=== PATIENT | male | born 1990 | race American Indian/Alaskan Native ===

== ENCOUNTER 2018-12-01 02:50 | Emergency (ER) | payer SELFPAY ==
[2018-12-01] MEDS ORDERED: Lidocaine 1% Inj (20ml) IJ STA (03:54)
[2018-12-01] MEDS ORDERED: Bacitracin 500 Units/gm Oint Foilpak UD TOP STA (04:20)
--- NOTE | 2018-12-01 06:22 | ED PDOC ---
Arrival/HPI - General Chief Complaint: Abnormal Skin Integrity Time Seen by Provider: 12/01/18 06:15 Historian: Patient - History of Present Illness Narrative History of Present Illness (Text): 12/01/18 06:16 28 y/o M w/ no PMH presenting to the Emergency Room with complaint of finger laceration. Patient states he was changing his tire when he sustained a laceration on his left index finger. He denies any debris entering the skin. He denies head injury, falls, numbness to the hand or changes in temperture. He is unsure of his last tetanus shot. Time/Duration: Prior to Arrival Symptom Onset: Sudden Symptom Course: Unchanged Activities at Onset: Rest Context: Home Past Medical History - Provider Review Nursing Documentation Reviewed: Yes - Travel History Have you recently traveled outside [place] w/in the past 3 mons?: No Family/Social History - Physician Review Nursing Documentation Reviewed: Yes Family/Social History: Unknown Family HX Allergies/Home Meds Allergies/Adverse Reactions: Allergies No Known Allergies Allergy (Verified 12/01/18 06:43) Review of Systems - Physician Review All systems were reviewed & negative as marked: Yes - Review of Systems Skin: Laceration (L index finger) Physical Exam Vital Signs Reviewed: Yes Temperature: Afebrile Blood Pressure: Normal Pulse: Regular Respiratory Rate: Normal Appearance: Positive for: Well-Appearing, Non-Toxic, Comfortable Mental Status: Positive for: Alert and Oriented X 3 - Systems Exam Head: Present: Atraumatic, Normocephalic Pupils: Present: PERRL Extroacular Muscles: Present: EOMI Mouth: Present: Moist Mucous Membranes Respiratory/Chest: Present: Clear to Auscultation, Good Air Exchange. No: Respiratory Distress Cardiovascular: Present: Regular Rate and Rhythm, Normal S1, S2 Upper Extremity: Present: Normal Inspection, NORMAL PULSES, Neurovascularly Intact, Capillary Refill < 2s. No: Cyanosis, Edema Skin: Present: Warm, Dry, Laceration (Left index finger complex deep laceration w/ exposed subcutaneous tissue) Psychiatric: Present: Alert, Oriented x 3, Normal [facility] Medical Decision Making ED Course and Treatment: 12/01/18 06:21 Impression 28M w/ finger laceration Plan -Tetanus booster shot --Suture repair --Reassess & disposition Progress Notes 12/01/18 06:27 Laceration repair completed with no difficulties. Patient advised to follow up with PCP or return back to ED for wound reevaluation and suture removal in 3-5 days. He demonstrates understanding and will follow up. He is stable for discharge. PROCEDURE: LACERATION REPAIR Performed by the emergency provider Location: Left index finger Length: 4 cm Description: Simple deep linear laceration with clean wound edges ,no foreign bodies visualized Distal CMS: Normal. No deficits. Neurovascularly intact. Anesthesia: Lidocaine 1% Preparation: The wound was cleaned with NS and Bet[place]. The area was prepped and draped in the usual sterile fashion. Exploration: The wound was explored and no foreign bodies were found. Procedure: The wound was closed with 3.0 nylon & 3.0 Vicyrl. There was good approximation. In total, 8 were used. Post-Procedure: Good closure and hemostasis. The patient tolerated the procedure well and there were no complications. CSM remains intact. Post procedure dressing applied. Disposition/Present on Arrival - Present on Arrival Any Indicators Present on Arrival: No History of DVT/PE: No History of Uncontrolled Diabetes: No Urinary Catheter: No History of Decub. Ulcer: No - Disposition Have Diagnosis and Disposition been Completed?: Yes Diagnosis: Finger laceration Disposition: HOME/ ROUTINE Disposition Time: 05:00 Patient Plan: Discharge Condition: IMPROVED Discharge Instructions (ExitCare): Wound Care (DC), Common Finger Injuries (DC) Forms: [address] ([place])
== END 2018-12-01 10:34 | disposition home or self-care (01) ==
LOC: ED 02:50
DX: S61.211A Laceration without foreign body of left index finger without damage to nail, initial encounter (principal); X58.XXXA Exposure to other specified factors, initial encounter